=== PATIENT | male | born 1985 | race Caucasian/White ===

== ENCOUNTER 2018-09-06 20:23 | Emergency (ER) | payer MEDICAID ==
[~2018-09-06] VITALS: Ht 172.7 cm; Wt 142.7 kg
[2018-09-06 20:39] VITALS: BP 173/106; PULSE 93; RESP 18; Ht 172.7 cm; Wt 142.7 kg
--- NOTE | 2018-09-06 23:47 | ERD ---
ER Documentation Chief Complaint Chief Complaint L upper lip numbness/tingling X 2 days HPI 32-year-old male presents complaint of tingling around his lips for the past 3 days. States that he went on [employer] and that his surgeon and became concerned about having a stroke. Denies any numbness weakness, headaches, dizziness, vision problems. Denies medical problems. Denies allergies. ROS All systems reviewed and are negative except as per history of present illness. Allergies Allergies: Coded Allergies: No Known Allergy (Unverified , 09/06/18) PMhx/Soc Medical and Surgical Hx: pt denies Medical Hx, pt denies Surgical Hx History of Surgery: No Anesthesia Reaction: No Hx Neurological Disorder: No Hx Respiratory Disorders: No Hx Cardiac Disorders: No Hx Psychiatric Problems: No Hx Miscellaneous Medical Probl: No Hx Alcohol Use: No Hx Substance Use: No Hx Tobacco Use: No Smoking Status: Never smoker FmHx Family History: No diabetes, No coronary disease, No other Physical Exam Vitals Vital Signs Date Temp Pulse Resp B/P (MAP) Pulse Ox O2 O2 Flow FiO2 Time Delivery Rate 09/06/18 99.4 93 18 173/106 99 20:39 (128) Physical Exam Const: No acute distress Head: Atraumatic Eyes: Normal Conjunctiva ENT: Normal External Ears, Nose and Mouth. Neck: Full range of motion. No meningismus. Resp: Clear to auscultation bilaterally Cardio: Regular rate and rhythm, no murmurs Abd: Soft, non tender, non distended. Normal bowel sounds Skin: No petechiae or rashes Back: No midline or flank tenderness Ext: No cyanosis, or edema Neur: Awake and alert Psych: Normal Mood and Affect Neuro: M/S: Alert and oriented Face: EOMI, face and pharynx with normal sensation and function Motor: Normal strength throughout Sensation: Normal sensation throughout Speech: Normal Cerebel: Normal coordination Normal gait Normal finger to nose DTR: 2+ and symmetric upper/lower extremities Procedures/MDM MDM: Patient's neuro exam within normal limits. Patient's presentation is not consistent with CVA. Low suspicion for CVA, intracranial mass, hypoglycemia, electrolyte imbalance, or any other emergent condition. Patient was advised to follow-up with his primary care regarding hypertension seen on his vitals. Patient is not having any symptoms of endorgan damage. Patient discharged with strict ER precautions. Patient advised to follow up with PMD. All questions answered at discharge. Departure Diagnosis: Primary Impression: Tingling Condition: Stable Patient Instructions: Numbness Referrals: [facility] YOU HAVE RECEIVED A MEDICAL SCREENING EXAM AND THE RESULTS INDICATE THAT YOU DO NOT HAVE A CONDITION THAT REQUIRES URGENT TREATMENT IN THE EMERGENCY DEPARTMENT. FURTHER EVALUATION AND TREATMENT OF YOUR CONDITION CAN WAIT UNTIL YOU ARE SEEN IN YOUR DOCTORS OFFICE WITHIN THE NEXT 1-2 DAYS. IT IS YOUR RESPONSIBILITY TO MAKE AN APPOINTMENT FOR FOLOW-UP CARE. IF YOU HAVE A PRIMARY DOCTOR --you should call your primary doctor and schedule an appointment IF YOU DO NOT HAVE A PRIMARY DOCTOR YOU CAN CALL OUR PHYSICIAN REFERRAL HOTLINE AT IF YOU CAN NOT AFFORD TO SEE A PHYSICIAN YOU CAN CHOSE FROM THE FOLLOWING [facility] [address] [facility]. [facility] [address] [facility] [facility] [address] [facility] [address] [facility] [address] [facility]. [facility] [address] Additional Instructions: FOLLOW UP WITH YOUR PRIMARY CARE PHYSICIAN TOMORROW.Return to this facility if you are not improving as expected. ASHLEY FARR September 06, 2018 23:47
== END 2018-09-06 23:59 | disposition home or self-care (01) ==
LOC: FTE 20:23
DX: R20.2 Paresthesia of skin (principal)
CPT/HCPCS: 99282

== ENCOUNTER 2018-12-14 12:14 | Emergency (ER) | payer MEDICAID ==
[~2018-12-14] VITALS: Ht 167.6 cm; Wt 143.1 kg
[~2018-12-14 12:14] MED LIST: CYCL10TA7 PO; NAPR-985 PO
[2018-12-14 12:24] VITALS: Ht 167.6 cm; Wt 143.1 kg
[2018-12-14 15:18] VITALS: BP 154/84; PULSE 103; RESP 18
== END 2018-12-14 15:21 | disposition home or self-care (01) ==
LOC: FTE 12:14
DX: R10.9 Unspecified abdominal pain (principal); M79.18 Myalgia, other site
CPT/HCPCS: 81003; 87591; J1885; 96372